=== PATIENT | female | born 1990 | race Two or more races ===

== ENCOUNTER 2021-10-22 16:35 | Emergency (ER) | payer BC ==
[~2021-10-22] VITALS: Ht 170.2 cm; Wt 93.9 kg
== END 2021-10-22 17:38 | disposition home or self-care (01) ==
LOC: ER 16:42
DX: R05.9 Cough, unspecified (principal); U07.1 COVID-19; F41.9 Anxiety disorder, unspecified
CPT/HCPCS: 99282